=== PATIENT | male | born 1950 | race Caucasian/White ===

== ENCOUNTER 2018-10-27 15:32 | Emergency (ER) | payer MEDICAID ==
[~2018-10-27] VITALS: Ht 165.1 cm; Wt 68.0 kg
[2018-10-27 17:16] LABS: *AMPHETAMINES SCREEN URINE NEGATIVE (NEGATIVE); *BARBITURATES SCREEN URINE NEGATIVE (NEGATIVE); *BENZODIAZEPINES SCREEN URINE NEGATIVE (NEGATIVE); CANNABINOID URINE SCREEN NEGATIVE (NEGATIVE)
[2018-10-27 17:17] LABS: *COCAINE SCREEN URINE NEGATIVE (NEGATIVE); METHADONE URINE SCREEN NEGATIVE (NEGATIVE); OPIATES URINE SCREEN NEGATIVE (NEGATIVE); PHENCYCLIDINE URINE SCREEN NEGATIVE (NEGATIVE)
[2018-10-27] MEDS ORDERED: SODIUM CHLORIDE 0.9% 1,000 ML IV ONE (18:09)
[2018-10-27 18:12] LABS: HEMATOCRIT. 35.9 % (42.0-52.0); HEMOGLOBIN. 12.3 g/dL (14.0-18.0); MEAN CORPUSCULAR HEMOGLOBIN 33.9 pg (28.0-32.0); MEAN CORPUSCULAR VOLUME 98.8 fL (80.0-94.0); PLATELET 219 x1000/uL (130-400); RED BLOOD CELL COUNT 3.64 mill/uL (4.7-6.1); RED CELL DISTRIBUTION WIDTH 16.3 % (11.6-14.6)
[2018-10-27 18:18] LABS: CHLORIDE 100 mEq/L (98-107)
[2018-10-27 18:24] LABS: ETHANOL BLOOD 96 mg/dL
[2018-10-27 18:27] LABS: INR 1.1; PARTIAL THROMBOPLASTIN TIME 23.1 sec (23.4-31.0); PROTHROMBIN TIME 10.6 sec (9.1-11.1)
[2018-10-27 19:42] VITALS: BP 153/74
[2018-10-27] MEDS ORDERED: POTASSIUM CHLORIDE 20MEQ TABLET SR PO ONE (19:45)
[2018-10-27 19:52] LABS: PLATELET ESTIMATE NORMAL
== END 2018-10-27 20:58 | disposition home or self-care (01) ==
LOC: ER 15:32
DX: F10.129 Alcohol abuse with intoxication, unspecified (principal); F32.9 Major depressive disorder, single episode, unspecified; D64.9 Anemia, unspecified; E87.6 Hypokalemia; I10 Essential (primary) hypertension; Y90.4 Blood alcohol level of 80-99 mg/100 ml
CPT/HCPCS: 36415; 70450; 80048; 80305; 80307; 80329; 85025; 85610; 85730; 87186; 93005; 99284; J7030

== ENCOUNTER 2018-10-30 08:27 | Emergency (ER) | payer MEDICARE, MEDICAID ==
[~2018-10-30] VITALS: Ht 172.7 cm; Wt 70.0 kg
[2018-10-30 08:50] VITALS: BP 131/76
== END 2018-10-30 08:59 | disposition left against medical advice (07) ==
LOC: ER 08:27
DX: R55 Syncope and collapse (principal); Z53.21 Procedure and treatment not carried out due to patient leaving prior to being seen by health care provider

== ENCOUNTER 2018-10-30 09:57 | Emergency (ER) | payer MEDICARE, MEDICAID | END 2018-10-30 10:57 | disposition left against medical advice (07) | LOC: ER 09:57 | DX: Z53.21 Procedure and treatment not carried out due to patient leaving prior to being seen by health care provider (principal) ==

== ENCOUNTER 2018-10-30 12:13 | Emergency (ER) | payer MEDICARE, MEDICAID ==
[~2018-10-30] VITALS: Ht 175.3 cm; Wt 65.0 kg
[2018-10-30 12:20] VITALS: BP 148/86
== END 2018-10-30 12:35 | disposition left against medical advice (07) ==
LOC: ER 12:35
DX: R55 Syncope and collapse (principal); Z53.21 Procedure and treatment not carried out due to patient leaving prior to being seen by health care provider

== ENCOUNTER 2018-10-31 14:02 | Emergency (ER) | payer MEDICARE, MEDICAID ==
[~2018-10-31] VITALS: Ht 172.7 cm; Wt 75.0 kg
[2018-10-31 20:00] VITALS: BP 132/60
[2018-11-01] MEDS ORDERED: ATAZ300C MT (15:41)
[2018-11-01] MEDS ORDERED: RITO100T MT (15:41)
[2018-11-01] MEDS ORDERED: BUPR300T52 MT (15:41)
== END 2018-10-31 18:08 | disposition left against medical advice (07) ==
LOC: ER 14:10
DX: Z53.21 Procedure and treatment not carried out due to patient leaving prior to being seen by health care provider (principal)

== ENCOUNTER 2018-10-31 18:12 | Inpatient (IN) | payer MEDICARE, MEDICAID ==
[~2018-10-31] VITALS: Ht 167.6 cm; Wt 64.9 kg
[2018-10-31] MEDS ORDERED: SODIUM CHLORIDE 0.9% 1,000 ML IV ONE (21:58)
[2018-10-31 23:04] LABS: BASOPHILS % 0.9 % (0.0-2.0); EOSINOPHILS % 0.9 % (0.0-5.0); HEMATOCRIT. 35.3 % (42.0-52.0); LYMPHOCYTES % 39.7 % (20.0-50.0); MEAN CORPUSCULAR HEMOGLOBIN 34.3 pg (28.0-32.0); MEAN CORPUSCULAR VOLUME 100.8 fL (80.0-94.0); MEAN PLATELET VOLUME 7.1 fl (7.4-10.4); MONOCYTES % 14.3 % (2.0-8.0); NEUTROPHILS % 44.2 % (40.0-76.0); PLATELET 317 x1000/uL (130-400); RED CELL DISTRIBUTION WIDTH 16.2 % (11.6-14.6)
[2018-10-31 23:11] LABS: CHLORIDE 100 mEq/L (98-107)
[2018-10-31 23:15] LABS: ETHANOL BLOOD 55 mg/dL
[2018-10-31 23:17] LABS: PARTIAL THROMBOPLASTIN TIME 23.2 sec (23.4-31.0)
[2018-10-31 23:19] LABS: CREATINE KINASE 316 IU/L (39-308)
[2018-10-31 23:22] LABS: CREATINE KINASE MB FRACTION 4.7 ng/mL (0.5-3.6)
[2018-10-31] MEDS ORDERED: FOLIC ACID 1 MG, THIAMINE HCL 100 MG, MVI, ADULT NO.1 10 ML in DEXTROSE 5% WATER 1,000 ML IV ONE ×4 (23:45)
[2018-11-01] MEDS ORDERED: FOLIC ACID 1 MG, MVI, ADULT NO.1 10 ML in DEXTROSE 5% WATER 1,000 ML IV NR ×3 (00:30)
[2018-11-01] MEDS ORDERED: THIAMINE HCL 100MG TABLET PO NR (00:30)
[2018-11-01 00:40] LABS: *AMPHETAMINES SCREEN URINE NEGATIVE (NEGATIVE); *BARBITURATES SCREEN URINE NEGATIVE (NEGATIVE); *BENZODIAZEPINES SCREEN URINE NEGATIVE (NEGATIVE); *COCAINE SCREEN URINE NEGATIVE (NEGATIVE)
[2018-11-01 00:41] LABS: CANNABINOID URINE SCREEN NEGATIVE (NEGATIVE); METHADONE URINE SCREEN NEGATIVE (NEGATIVE); OPIATES URINE SCREEN NEGATIVE (NEGATIVE); PHENCYCLIDINE URINE SCREEN NEGATIVE (NEGATIVE)
[2018-11-01] MEDS ORDERED: ATAZ300C MT (15:41)
[2018-11-01] MEDS ORDERED: RITO100T MT (15:41)
[2018-11-01] MEDS ORDERED: BUPR300T52 MT (15:41)
[2018-11-01 16:05] VITALS: BP 138/76
[2018-11-01] MEDS ORDERED: MAGNESIUM/ALUMINUM HYDROXIDE/SIMETHICONE 30ML UDC PO PRN (18:45)
[2018-11-01] MEDS ORDERED: IPRATROPIUM/ALBUTEROL 0.5-3(2.5)MG/3ML NEB INH PRN (18:45)
[2018-11-01] MEDS ORDERED: CLONIDINE 0.1MG TABLET PO PRN (18:45)
[2018-11-01] MEDS ORDERED: ACETAMINOPHEN 650MG SUPP PR PRN (18:45)
[2018-11-01] MEDS ORDERED: NA PHOS,M-B/NA PHOS,DI-BA ENEMA 118ML PR PRN (18:45)
[2018-11-01] MEDS ORDERED: GUAIFENESIN 200MG/10ML SUGAR FREE UDC PO PRN (18:45)
[2018-11-01] MEDS ORDERED: ONDANSETRON HCL 4MG/2ML INJ IV PRN (18:45)
[2018-11-01] MEDS ORDERED: DOCUSATE SODIUM 100MG CAPSULE PO PRN (18:45)
[2018-11-01] MEDS ORDERED: HYDROCODONE/ACETAMINOPHEN 5/325MG TABLET PO PRN (18:45)
[2018-11-01] MEDS: PANTOPRAZOLE SODIUM 40 MG/VIAL IV SCH (19:11)
[2018-11-01] MEDS: LORAZEPAM 2MG/ML CPJ IV PRN (19:11)
[2018-11-01 20:00] VITALS: BP 123/74
[2018-11-01] MEDS: ENOXAPARIN 40MG/0.4ML SYR SUBCUT SCH (21:17)
[2018-11-01 22:51] LABS: CREATINE KINASE 424 IU/L (39-308)
[2018-11-01 22:52] LABS: CREATINE KINASE MB FRACTION 6.6 ng/mL (0.5-3.6)
[2018-11-01 23:14] LABS: HEPATITIS B SURFACE ANTIGEN NEGATIVE
[2018-11-01 23:44] LABS: HEPATITIS A AB IGM NEGATIVE (NEGATIVE)
[2018-11-02] VITALS: BP 128/71
[2018-11-02] MEDS: MVI, ADULT NO.1 10 ML, FOLIC ACID 1 MG, THIAMINE HCL 100 MG in SODIUM CHLORIDE 0.45% 1,... IV SCH ×4 (00:51)
[2018-11-02 04:00] VITALS: BP 123/72
[2018-11-02 06:16] LABS: CLARITY URINE CLEAR (CLEAR); COLOR URINE YELLOW (YELLOW); KETONES URINE 1+ (NEGATIVE); LEUKOCYTE ESTERASE URINE NEGATIVE (NEGATIVE); NITRITE URINE NEGATIVE (NEGATIVE); OCCULT BLOOD URINE NEGATIVE (NEGATIVE); PROTEIN URINE NEGATIVE (NEGATIVE); SPECIFIC GRAVITY URINE 1.011 (1.005-1.030); UROBILINOGEN URINE 0.2 E.U./dL (0.2-1.0)
[2018-11-02 07:48] LABS: EOSINOPHILS % 0.9 % (0.0-5.0); HEMATOCRIT. 31.1 % (42.0-52.0); HEMOGLOBIN. 10.9 g/dL (14.0-18.0); LYMPHOCYTES % 33.2 % (20.0-50.0); MEAN CORPUSCULAR HEMOGLOBIN 35.1 pg (28.0-32.0); MEAN CORPUSCULAR VOLUME 99.7 fL (80.0-94.0); MEAN PLATELET VOLUME 7.1 fl (7.4-10.4); MONOCYTES % 14.5 % (2.0-8.0); NEUTROPHILS % 50.4 % (40.0-76.0); PLATELET 241 x1000/uL (130-400); RED BLOOD CELL COUNT 3.12 mill/uL (4.7-6.1); RED CELL DISTRIBUTION WIDTH 16.1 % (11.6-14.6)
[2018-11-02 08:00] VITALS: BP 129/71
[2018-11-02 08:09] LABS: CHLORIDE 100 mEq/L (98-107)
[2018-11-02 08:30] LABS: CREATINE KINASE 305 IU/L (39-308); LDL CHOLESTEROL 44 mg/dL (5-100)
[2018-11-02 08:33] LABS: T4 FREE 0.92 ng/dL (0.76-1.46)
[2018-11-02 08:34] LABS: HDL CHOLESTEROL 85 mg/dL (40-59)
[2018-11-02] MEDS: PANTOPRAZOLE SODIUM 40 MG/VIAL IV SCH (09:00)
[2018-11-02] MEDS: AMLODIPINE 5MG TABLET PO SCH (09:00)
[2018-11-02 12:00] VITALS: BP 133/71
[2018-11-02] MEDS ORDERED: POTASSIUM CHLORIDE 20MEQ TABLET SR PO SCH (12:45)
[2018-11-02] MEDS ORDERED: LACTULOSE 20G/30ML UDC PO SCH (12:45)
[2018-11-02 16:00] VITALS: BP 127/80
[2018-11-02] MEDS: LORAZEPAM 2MG/ML CPJ IV PRN (16:52)
[2018-11-02 20:00] VITALS: BP 121/64
[2018-11-02] MEDS ORDERED: POTASSIUM CHLORIDE 20MEQ TABLET SR PO NR (20:45)
[2018-11-02] MEDS ORDERED: LACTULOSE 20G/30ML UDC PO NR (20:45)
[2018-11-02] MEDS: DIPHENHYDRAMINE 50MG/ML VIAL IV PRN (21:03)
[2018-11-02] MEDS: ENOXAPARIN 40MG/0.4ML SYR SUBCUT SCH (21:03)
[2018-11-03] VITALS: BP 112/64
[2018-11-03] MEDS: MVI, ADULT NO.1 10 ML, FOLIC ACID 1 MG, THIAMINE HCL 100 MG in SODIUM CHLORIDE 0.45% 1,... IV SCH ×4 (01:06)
[2018-11-03 04:00] VITALS: BP 121/75
[2018-11-03] MEDS: DIPHENHYDRAMINE 50MG/ML VIAL IV PRN ×3 (07:32→20:06)
[2018-11-03 08:00] VITALS: BP_SYST 111; BP_SYST 126; BP_SYST 133; BP_DIAS 74; BP_DIAS 75; BP_DIAS 76
[2018-11-03] MEDS: AMLODIPINE 5MG TABLET PO SCH (08:34)
[2018-11-03] MEDS: PANTOPRAZOLE SODIUM 40 MG/VIAL IV SCH (08:34)
[2018-11-03 09:06] LABS: ABSOLUTE LYMPHOCYTES 1.6 x10E3/uL (0.7-3.1); ABSOLUTE MONOCYTES 0.7 x10E3/uL (0.1-0.9); ABSOLUTE NEUTROPHILS 2.6 x10E3/uL (1.4-7.0); BASOPHILS 1 % (Not Estab.); HEMATOCRIT 30.3 % (37.5-51.0); HEMOGLOBIN 10.4 g/dL (13.0-17.7); IMMATURE GRANULOCYTES 0 % (Not Estab.); LYMPHOCYTES 32 % (Not Estab.); MEAN CORPUSCULAR HGB CONC. 34.3 g/dL (31.5-35.7); MEAN CORPUSCULAR VOLUME 99 fL (79-97); MONOCYTES 14 % (Not Estab.); NEUTROPHILS 52 % (Not Estab.); PLATELETS 293 x10E3/uL (150-379); RBC 3.06 x10E6/uL (4.14-5.80); RED CELL DISTRIBUTION WIDTH 16.2 % (12.3-15.4)
[2018-11-03 12:00] VITALS: BP 113/66
[2018-11-03 13:06] LABS: % CD 3 POS. LYMPHOCYTES 89.9 % (57.5-86.2); % CD 4 POS. LYMPHOCYTES 36.3 % (30.8-58.5); % CD 8 POS. LYMPH 53.9 % (12.0-35.5); ABSOLUTE CD 3 1438 /uL (622-2402); ABSOLUTE CD 4 HELPER 581 /uL (359-1519); ABSOLUTE CD 8 SUPPRESSOR 862 /uL (109-897); CD4/CD8 RATIO 0.67 (0.92-3.72)
[2018-11-03 16:00] VITALS: BP 114/60
[2018-11-03 20:00] VITALS: BP_SYST 121; BP_SYST 128; BP_DIAS 68; BP_DIAS 78
[2018-11-03] MEDS: ENOXAPARIN 40MG/0.4ML SYR SUBCUT SCH (22:21)
[2018-11-04] VITALS: BP 119/66
[2018-11-04] MEDS: DIPHENHYDRAMINE 50MG/ML VIAL IV PRN ×4 (00:03→21:03)
[2018-11-04] MEDS: ACETAMINOPHEN 325MG TABLET PO PRN ×2 (00:03→21:04)
[2018-11-04] MEDS: MVI, ADULT NO.1 10 ML, FOLIC ACID 1 MG, THIAMINE HCL 100 MG in SODIUM CHLORIDE 0.45% 1,... IV SCH ×4 (02:32)
[2018-11-04 04:00] VITALS: BP 120/72
[2018-11-04 08:00] VITALS: BP 126/77
[2018-11-04] MEDS: AMLODIPINE 5MG TABLET PO SCH (09:36)
[2018-11-04] MEDS: FAMOTIDINE 20MG TABLET PO SCH ×2 (09:36→21:04)
[2018-11-04 12:00] VITALS: BP 101/63
[2018-11-04 16:00] VITALS: BP 106/66
[2018-11-04 20:00] VITALS: BP 108/60
[2018-11-04] MEDS: ENOXAPARIN 40MG/0.4ML SYR SUBCUT SCH (21:03)
[2018-11-05] VITALS: BP 107/64
[2018-11-05 04:00] VITALS: BP 112/64
[2018-11-05] MEDS: MVI, ADULT NO.1 10 ML, FOLIC ACID 1 MG, THIAMINE HCL 100 MG in SODIUM CHLORIDE 0.45% 1,... IV SCH ×4 (04:10)
[2018-11-05] MEDS: DIPHENHYDRAMINE 50MG/ML VIAL IV PRN ×4 (04:20→20:46)
[2018-11-05 07:15] LABS: BASOPHILS % 1.1 % (0.0-2.0); EOSINOPHILS % 1.7 % (0.0-5.0); HEMATOCRIT. 32.8 % (42.0-52.0); HEMOGLOBIN. 11.6 g/dL (14.0-18.0); LYMPHOCYTES % 34.4 % (20.0-50.0); MEAN CORPUSCULAR HEMOGLOBIN 35.6 pg (28.0-32.0); MEAN CORPUSCULAR VOLUME 100.8 fL (80.0-94.0); MEAN PLATELET VOLUME 7.1 fl (7.4-10.4); MONOCYTES % 14.7 % (2.0-8.0); NEUTROPHILS % 48.1 % (40.0-76.0); PLATELET 275 x1000/uL (130-400); RED BLOOD CELL COUNT 3.25 mill/uL (4.7-6.1); RED CELL DISTRIBUTION WIDTH 15.4 % (11.6-14.6)
[2018-11-05] MEDS: FAMOTIDINE 20MG TABLET PO SCH ×2 (08:04→20:46)
[2018-11-05] MEDS: AMLODIPINE 5MG TABLET PO SCH (08:04)
[2018-11-05 08:28] LABS: CHLORIDE 104 mEq/L (98-107)
[2018-11-05 20:00] VITALS: BP_SYST 102; BP_SYST 106; BP_DIAS 55; BP_DIAS 63
[2018-11-05] MEDS ORDERED: LEVOFLOXACIN 500MG PREMIX 100 ML IV SCH (20:00)
[2018-11-05] MEDS: ENOXAPARIN 40MG/0.4ML SYR SUBCUT SCH (20:46)
[2018-11-08 08:23] LABS: HIV 1 ABS Positive (Negative); HIV 2 ABS Negative (Negative); HIV SCREEN 4G Reactive (Non Reactive); INTERPRETATION HIV-1 Positive (.)
== END 2018-11-05 22:17 | DRG 896 ==
LOC: ER 18:20 → EDBEDREQTM 22:46 → 7WST 11-01 00:23 → EDBEDREQTM 11-01 00:26 → EDBEDREQDT 11-01 00:26 → EDBEDREQ 11-01 00:26 → ENRESERV 11-01 13:57 → 7WST 11-01 16:26
PROVIDERS: ADMIT Internal Medicine; ATTEND Internal Medicine
DX: F10.129 Alcohol abuse with intoxication, unspecified (principal); I50.33 Acute on chronic diastolic (congestive) heart failure; E87.2 Acidosis; G90.8 Other disorders of autonomic nervous system; K80.20 Calculus of gallbladder without cholecystitis without obstruction; D64.9 Anemia, unspecified; E86.0 Dehydration; F17.200 Nicotine dependence, unspecified, uncomplicated; F32.9 Major depressive disorder, single episode, unspecified; Z72.89 Other problems related to lifestyle; E80.6 Other disorders of bilirubin metabolism; R74.0 Nonspecific elevation of levels of transaminase and lactic acid dehydrogenase [LDH]
CPT/HCPCS: 36415; 71045; 73564; 73590; 76700; 80061; 80076; 80305; 82140; 82550; 82553; 83605; 83880; 84145; 84439; 84443; 84484; 85379; 86359; 86360; 86701; 86702; 86705; 86709; 86803; 87340; 87389; 93005; 93306; 93880; 96374; 97162; 99285; C9113; J1200; J1650; J1956; J2060; J3411; J3490; J7030; J7070; A4315